=== PATIENT | male | born 1985 ===

== ENCOUNTER 2018-10-20 14:43 | Outpatient (CLI) | payer OTHER | END 2018-10-20 14:49 | disposition home or self-care (01) | LOC: LAB 14:43 | DX: Z11.3 Encounter for screening for infections with a predominantly sexual mode of transmission (principal) ==

== ENCOUNTER → 2021-01-25 | Outpatient (CLI) | payer OTHER | END | disposition home or self-care (01) | LOC: EDBD 11:18 → LAB 11:18 | PROVIDERS: ATTEND Emergency Medicine Pediatric Emergency Medicine | DX: Z03.818 Encounter for observation for suspected exposure to other biological agents ruled out (principal) ==

== ENCOUNTER 2021-02-06 09:23 | Outpatient (CLI) | payer OTHER | END 2021-02-06 18:00 | disposition home or self-care (01) | LOC: EDBD 09:23 → LAB 09:23 | PROVIDERS: ATTEND Emergency Medicine Pediatric Emergency Medicine | DX: Z03.818 Encounter for observation for suspected exposure to other biological agents ruled out (principal) ==

== ENCOUNTER 2021-02-07 08:00 | Outpatient (CLI) | payer OTHER | END 2021-02-07 08:30 | disposition home or self-care (01) | LOC: PPH VACUNA 08:00 | DX: Z23 Encounter for immunization (principal) ==

== ENCOUNTER 2021-02-21 08:00 | Outpatient (CLI) | payer OTHER | END 2021-02-21 08:30 | disposition home or self-care (01) | LOC: PPH VACUNA 08:00 | DX: Z23 Encounter for immunization (principal) ==